=== PATIENT | male | born 1990 | race Caucasian/White ===

== ENCOUNTER 2017-12-04 08:36 | Emergency (ER) | payer MEDICAID ==
[~2017-12-04] VITALS: Ht 180.3 cm; Wt 80.9 kg
[2017-12-04 08:44] VITALS: BP 145/92
[2017-12-04] MEDS ORDERED: albuterol 2.5 MG/3 ML nebule NEB ONE (09:05)
[2017-12-04] MEDS ORDERED: AZIT-72 PO (09:56)
[2017-12-04] MEDS ORDERED: BENZ-38 PO (09:56)
[2017-12-04] MEDS ORDERED: ALBU8.5H8 IH (09:56)
== END 2017-12-04 10:05 | disposition home or self-care (01) ==
LOC: ER 08:37
DX: J20.9 Acute bronchitis, unspecified (principal); F17.210 Nicotine dependence, cigarettes, uncomplicated; F12.90 Cannabis use, unspecified, uncomplicated; Z79.2 Long term (current) use of antibiotics; Z79.899 Other long term (current) drug therapy; Z56.0 Unemployment, unspecified
CPT/HCPCS: 94640; 94760; 99283

== ENCOUNTER 2017-12-09 09:54 | Emergency (ER) | payer MEDICAID ==
[~2017-12-09] VITALS: Ht 180.3 cm; Wt 81.2 kg
[~2017-12-09 09:54] MED LIST: ALBU8.5H8 IH; AZIT-72 PO; BENZ-38 PO
[2017-12-09 09:57] VITALS: BP 139/85
[2017-12-09] MEDS ORDERED: AMOX500C2 PO (10:54)
[2017-12-09] MEDS ORDERED: TRAM50TA2 PO (10:54)
== END 2017-12-09 11:00 | disposition home or self-care (01) ==
LOC: ER 09:54
DX: K04.7 Periapical abscess without sinus (principal); F12.90 Cannabis use, unspecified, uncomplicated; Z79.899 Other long term (current) drug therapy; Z56.0 Unemployment, unspecified
CPT/HCPCS: 99283

== ENCOUNTER 2018-03-03 13:39 | Emergency (ER) | payer MEDICAID ==
[~2018-03-03] VITALS: Ht 180.3 cm; Wt 90.9 kg
[~2018-03-03 13:39] MED LIST changes: -AZIT-72 PO; -BENZ-38 PO; +HYDR-4383 PO
[2018-03-03 14:06] VITALS: BP 134/97
== END 2018-03-03 15:47 | disposition home or self-care (01) ==
LOC: ER 13:39
DX: M25.532 Pain in left wrist (principal); F12.90 Cannabis use, unspecified, uncomplicated; F17.200 Nicotine dependence, unspecified, uncomplicated; Z56.0 Unemployment, unspecified; Z98.890 Other specified postprocedural states; W19.XXXA Unspecified fall, initial encounter; Y93.89 Activity, other specified; Y92.89 Other specified places as the place of occurrence of the external cause; Y99.9 Unspecified external cause status
CPT/HCPCS: 29125; 73110; 99283

== ENCOUNTER 2018-03-21 04:45 | Emergency (ER) | payer MEDICAID ==
[~2018-03-21] VITALS: Ht 180.3 cm; Wt 84.1 kg
[2018-03-21] MEDS ORDERED: ondansetron/PF 4mg/2ml inj IM ONE (04:55)
[2018-03-21] MEDS ORDERED: morphine 4 MG/ML inj SYRINge IM ONE (04:55)
[2018-03-21] MEDS ORDERED: ondansetron/PF 4mg/2ml inj IV ONE (05:05)
[2018-03-21] MEDS ORDERED: morphine 4 MG/ML inj SYRINge IV ONE (05:05)
[2018-03-21] MEDS ORDERED: ketorolac trometh. 30mg/ml inj. IV ONE (05:40)
[2018-03-21] MEDS ORDERED: TRAM50TA2 PO (05:41)
[2018-03-21] MEDS ORDERED: IBUP-1986 PO (05:41)
[2018-03-21 05:50] VITALS: BP 123/68
[2018-03-22] MEDS ORDERED: BUPR200T2 PO (07:47)
[2018-03-22] MEDS ORDERED: ALBU8.5H8 INH (09:30)
== END 2018-03-21 05:52 | disposition home or self-care (01) ==
LOC: ER 04:46
DX: R09.1 Pleurisy (principal); F41.9 Anxiety disorder, unspecified; F12.10 Cannabis abuse, uncomplicated; Z56.0 Unemployment, unspecified; Z79.899 Other long term (current) drug therapy
CPT/HCPCS: 71045; 93005; 96374; 96375; 99283; J1885; J2270; J2405

== ENCOUNTER 2018-03-22 07:20 | Emergency (ER) | payer MEDICAID ==
[~2018-03-22] VITALS: Ht 180.3 cm; Wt 84.1 kg
[~2018-03-22 07:20] MED LIST changes: +IBUP-1986 PO; +TRAM50TA2 PO
[2018-03-22] MEDS ORDERED: BUPR200T2 PO (07:47)
[2018-03-22] MEDS ORDERED: albuterol 2.5 MG/3 ML nebule NEB ONE (08:35)
[2018-03-22] MEDS ORDERED: dexamethasone 4mg tablet PO ONE (08:55)
[2018-03-22 09:25] VITALS: BP 143/63
[2018-03-22] MEDS ORDERED: ALBU8.5H8 INH (09:30)
== END 2018-03-22 09:39 | disposition home or self-care (01) ==
LOC: ER 07:20
DX: R09.1 Pleurisy (principal); F17.210 Nicotine dependence, cigarettes, uncomplicated; J45.909 Unspecified asthma, uncomplicated; F41.9 Anxiety disorder, unspecified; F12.10 Cannabis abuse, uncomplicated; Z56.0 Unemployment, unspecified
CPT/HCPCS: 94640; 94760; 99283; J8540

== ENCOUNTER 2018-07-05 11:27 | Emergency (ER) | payer MEDICAID ==
[~2018-07-05] VITALS: Ht 180.3 cm; Wt 78.0 kg
[~2018-07-05 11:27] MED LIST changes: -ALBU8.5H8 IH; +ALBU8.5H8 INH; +BUPR200T2 PO; -HYDR-4383 PO; -TRAM50TA2 PO
[2018-07-05] MEDS ORDERED: TETanus/Pertussis (Acell)/Diphther VAC/PF (Tdap-Adult) 0.5ml syringe IM ONE (13:10)
== END 2018-07-05 13:31 | disposition home or self-care (01) ==
LOC: ER 11:28
DX: S61.205A Unspecified open wound of left ring finger without damage to nail, initial encounter (principal); S61.200A Unspecified open wound of right index finger without damage to nail, initial encounter; L02.512 Cutaneous abscess of left hand; L02.511 Cutaneous abscess of right hand; F17.200 Nicotine dependence, unspecified, uncomplicated; F12.90 Cannabis use, unspecified, uncomplicated; F11.90 Opioid use, unspecified, uncomplicated; Z56.0 Unemployment, unspecified; Z59.0 Homelessness; X58.XXXA Exposure to other specified factors, initial encounter; Y93.89 Activity, other specified; Y92.89 Other specified places as the place of occurrence of the external cause; Y99.8 Other external cause status
CPT/HCPCS: 99281